=== PATIENT | female | born 2000 | race Caucasian/White ===

== ENCOUNTER 2019-07-18 23:13 | Emergency (ER) | payer OTHER ==
[~2019-07-18] VITALS: Ht 160 cm; Wt 50.0 kg
[2019-07-18 23:15] VITALS: BP 145/81
[2019-07-18] MEDS ORDERED: MUPIROCIN 2% OINT 22 GM TUBE TOP ONE (23:45)
[2019-07-18] MEDS ORDERED: AUGMENTIN 875 MG TAB PO ONE (23:45)
[2019-07-19] MEDS ORDERED: AUGM875T28 PO (00:06)
== END 2019-07-19 00:13 | disposition home or self-care (01) ==
LOC: M ED 23:13
DX: S20.319A Abrasion of unspecified front wall of thorax, initial encounter (principal); S30.810A Abrasion of lower back and pelvis, initial encounter; S40.811A Abrasion of right upper arm, initial encounter; W55.03XA Scratched by cat, initial encounter; Y92.9 Unspecified place or not applicable

== ENCOUNTER 2019-12-05 22:58 | Emergency (ER) | payer OTHER ==
[~2019-12-05] VITALS: Ht 157.5 cm; Wt 55.5 kg
[2019-12-05 22:58] VITALS: BP 141/77
[~2019-12-05 22:58] MED LIST: AUGM875T28 PO
[2019-12-05] MEDS ORDERED: PREN1CHW6 PO (23:03)
[2019-12-06 00:07] LABS: APPEARANCE, URINE CLEAR (CLEAR); BACTERIA, URINE AUTO NEGATIVE (NEGATIVE); BASO % 0.4 % (0.0-1.0); BILIRUBIN, URINE AUTO NEGATIVE (NEGATIVE); BLOOD, URINE BLOOD NEGATIVE (NEGATIVE); COLOR, URINE COLORLESS (YELLOW); EOS # 0.2 10^3/uL (0.0-0.5); GLUCOSE, URINE (UA) AUTO NEGATIVE (NEGATIVE); HEMOGLOBIN 12.2 g/dl (12.0-15.5); KETONE, URINE AUTO NEGATIVE (NEGATIVE); LEUKOCYTE ESTERASE, URINE AUTO NEGATIVE (NEGATIVE); LYMPH # 2.8 10^3/uL (1.5-5.0); LYMPH % 25.5 % (24.0-44.0); MEAN CORPUSCULAR HEMOGLOBIN 29.9 pg (27.0-33.0); MEAN CORPUSCULAR HGB CONC 34.9 g/dl (32.0-36.5); MEAN CORPUSCULAR VOLUME 85.8 fl (80.0-96.0); MONO # 0.8 10^3/uL (0.0-0.8); MONO % 7.7 % (0.0-5.0); NEUTROPHILS % 63.9 % (36.0-66.0); NITRITE, URINE AUTO NEGATIVE (NEGATIVE); PROTEIN, URINE AUTO NEGATIVE (NEGATIVE); RBC, URINE AUTO 0 /HPF (0-3); RED BLOOD COUNT 4.08 10^6/uL (4.00-5.40); SQUAMOUS EPITHELIAL CELL UR AU 0 /HPF (0-6); UROBILINOGEN, URINE AUTO 0.2 mg/dL (0.0-2.0); WBC, URINE AUTO 1 /HPF (0-3); WHITE BLOOD COUNT 10.9 10^3/uL (4.0-10.0)
--- NOTE | 2019-12-06 00:21 | REPVR ---
PROCEDURE INFORMATION: Exam: US , Limited Exam date and time: 12/05/2019 11:33 PM Age: 19 years old Clinical indication: Other: Pelvic pain 18wks; Gestational age or lmp: 18 wks; TECHNIQUE: Imaging protocol: Real-time ultrasound of the maternal uterus with image documentation. Exam focused on the clinical indication. COMPARISON: No relevant prior studies available. FINDINGS: GESTATION: Gestation: Single live intrauterine . Heart rate: heart rate: 158 bpm. Placenta: No placenta previa or abruption. Amniotic fluid: Amniotic fluid index measures 10.7 cm, with the largest pocket measuring 3.3 cm. MATERNAL: Cervix: The cervix is closed and measures 3.8 cm in length. IMPRESSION: Single live intrauterine . No acute findings. PROCEDURE INFORMATION: Exam: US Doppler Velocimetry of the Umbilical Artery Exam date and time: 12/05/2019 11:33 PM Age: 19 years old Clinical indication: Other: Pelvic pain 18wks; Gestational age or lmp: 18 wks; TECHNIQUE: Imaging protocol: US Doppler velocimetry of the umbilical artery with Doppler color and waveform analysis. COMPARISON: No relevant prior studies available. FINDINGS: Umbilical cord and insertion: There are 2 umbilical arteries and single umbilical vein. Cord insertion on the abdominal is not well visualized. Umbilical artery Doppler: Waveforms are within normal limits for age. Umbilical artery peak systolic velocity: 36.6 cm/s. Umbilical artery systolic to diastolic ratio: Systolic to diastolic ratio is within normal limits for age. Other findings: Normal umbilical artery resistive index. IMPRESSION: Normal umbilical artery blood flow. Electronically signed by: Adarsh Crawford On 12/06/2019 00:21:02 AM
[2019-12-06 00:38] LABS: ALBUMIN 3.6 GM/DL (3.2-5.2); ALT/SGPT 22 U/L (12-78); BILIRUBIN,DIRECT < 0.1 MG/DL (0.0-0.2); BILIRUBIN,TOTAL 0.3 MG/DL (0.2-1.0); BLOOD UREA NITROGEN 8 MG/DL (7-18); CALCIUM LEVEL 9.5 MG/DL (8.5-10.1); CARBON DIOXIDE LEVEL 25 MEQ/L (21-32); CHLORIDE LEVEL 107 MEQ/L (98-107); GLUCOSE, FASTING 71 MG/DL (70-100); POTASSIUM SERUM 3.8 MEQ/L (3.5-5.1); SODIUM LEVEL 138 MEQ/L (136-145); TOTAL PROTEIN 6.9 GM/DL (6.4-8.2)
== END 2019-12-06 01:36 | disposition home or self-care (01) ==
LOC: M ED 22:58
DX: O26.892 Other specified pregnancy related conditions, second trimester (principal); R10.9 Unspecified abdominal pain; Z3A.18 18 weeks gestation of pregnancy

== ENCOUNTER 2020-04-24 09:56 | Inpatient (IN) | payer OTHER ==
[2020-04-24] VITALS (29 sets, daily range): BP systolic 99–158; BP diastolic 55–105
[~2020-04-24] VITALS: Ht 157.5 cm; Wt 72.3 kg
[~2020-04-24 09:56] MED LIST changes: +PREN1CHW6 PO
[2020-04-24 10:31] LABS: HEMATOCRIT 36.3 % (36.0-47.0); HEMOGLOBIN 11.6 g/dl (12.0-15.5); MEAN CORPUSCULAR HEMOGLOBIN 24.9 pg (27.0-33.0); MEAN CORPUSCULAR VOLUME 77.9 fl (80.0-96.0); PLATELET COUNT, AUTOMATED 257 10^3/uL (150-450); RED BLOOD COUNT 4.66 10^6/uL (4.00-5.40); WHITE BLOOD COUNT 8.5 10^3/uL (4.0-10.0)
[2020-04-24 11:01] LABS: ALT/SGPT 20 U/L (12-78); BILIRUBIN,TOTAL 0.4 MG/DL (0.2-1.0); CREATININE FOR GFR 0.69 MG/DL (0.55-1.30); LDH LACTATE DEHYDROGENASE 246 U/L (84-246); URIC ACID 6.2 MG/DL (2.6-6.0)
[2020-04-24 11:29] LABS: TOTAL PROTEIN,RANDOM URINE 42.7 MG/DL (0.0-12.0)
[2020-04-24] MEDS ORDERED: miSOPROStol 25 MCG 1/4 TAB (S0191) PV ONE (13:00)
[2020-04-24] MEDS ORDERED: PENICILLIN G POTASSIUM IV 5 MU in D5W MINI-BAG PLUS 100 ML IV STA (13:00)
--- NOTE | 2020-04-24 16:44 | HPEPDOC ---
Obstetrical History & Physical General Date of Admission Apr 24, 2020 at 13:24 History of Present Illness S: Leigh Ann is a 19yo at 38+5wks, EDC [id number] by 1st trimester US, who is being admitted to D for Pre-Eclampsia, diagnosed based on mild range elevated BPs and PC ratio of 1.04. She denies COLEMAN/RUQ pain/visual disturbances. She endorses excellent movement, denies LOF/VB/CTX. She has no concerns at this time. complicated by GBS Positive and excessive weight gain (46lbs). Blood Type O Positive. Benign medical history. Chief Complaint: Induction of labor Information Provided By: Patient Age: 19 : 1 Term: 0 Pre-term: 0 Abortions: 0 Livin Care Care: Good Care Number of Visits: 8 Dating Final EDC: May 03, 2020 Final EDC for Daily Update: May 03, 2020 Final EDC by: 1st trimester (US) Antepartum Course Height (inches): 62 Pre- weight (lbs.): 112 Admission Weight (lbs.): 158 Change in Weight (lbs.): 46 Past Medical History Past Obstetrical History : Past Obstetrical History: Primgravida Family History Significant Family History: No pertinent family hx Social History Marital Status: Family situation: Spouse/partner home Psychosocial History: No pertinent psych hx * Smoker: non-smoker Alcohol: Denies Drugs: denies Imunizations Tdap status: current Influenza Status: current Allergies Coded Allergies: No Known Allergies (Unverified , 04/24/20) Medications Scheduled Vit37/Iron/Folic Acid (Prenata Chewable Tablet) 1 Each Tab.chew, 1 TAB PO DAILY Physical Examination Physical Examination GENERAL: Alert and oriented times three. ABDOMEN: Gravid and non-tender to touch. FETUS: Is vertex (VTX) by sterile vaginal examination. HEART RATE: Regular rate. LUNGS: Observed nonlabored breathing. EXTREMITIES: Bilateral lower extremity edema. Other physical findings O: Afebrile, HR 70s-100s, BP range 99-155/55-105, most recent 135/85 FHR 130s, moderate variability, +accels, no decels noted CTX: irritability VE: 25/-2, membranes swept with initial exam Attempted CRB placement with SSE and manually, but cervix was very firm and pt was too uncomfortable to place at this time Cytotec 25g place at 1555 Vital Signs Date Time Temp Pulse Resp B/P (MAP) Pulse Ox O2 Delivery O2 Flow Rate FiO2 04/24/20 12:56 93 18 132/70 (90) 04/24/20 12:41 86 18 140/83 (102) 04/24/20 12:26 86 18 145/83 (103) 04/24/20 12:13 18 99/55 (70) 04/24/20 11:57 75 18 129/66 (87) 04/24/20 11:26 74 18 139/87 (104) 04/24/20 11:12 77 18 154/83 (106) 04/24/20 10:56 80 18 146/93 (110) 04/24/20 10:42 75 18 142/93 (109) 04/24/20 10:26 84 18 145/105 (118) 04/24/20 10:17 97.7 83 18 143/100 (114) 04/24/20 10:12 81 18 158/99 (118) Laboratory Tests 04/24/20 10:15: White Blood Count 8.5, Red Blood Count 4.66, Hemoglobin 11.6L, Hematocrit 36.3, Mean Corpuscular Volume 77.9L, Mean Corpuscular Hemoglobin 24.9L, Mean Corpuscular Hemoglobin Concent 32.0, Red Cell Distribution Width 14.0, Platelet Count 257, Nucleated Red Blood Cells % (auto) 0.0, Creatinine 0.69, Uric Acid 6.2H, Total Bilirubin 0.4, Aspartate Amino Transf (AST/SGOT) 23, Alanine Aminotransferase (ALT/SGPT) 20, Lactate Dehydrogenase 246 04/24/20 10:21: Urine Random Creatinine 41.0, Urine Random Total Protein 42.7H 04/24/20 13:55: Serology Scanned Report Hepatitis B Testing Vital Signs/I&O Vital Signs Date Time Temp Pulse Resp B/P (MAP) Pulse Ox O2 Delivery O2 Flow Rate FiO2 04/24/20 12:56 93 18 132/70 (90) 04/24/20 10:17 97.7 Laboratory Data 24H LABS Laboratory Tests 2 04/24/20 10:15: Nucleated Red Blood Cells % (auto) 0.0, Uric Acid 6.2H, Total Bilirubin 0.4, Aspartate Amino Transf (AST/SGOT) 23, Alanine Aminotransferase (ALT/SGPT) 20, Lactate Dehydrogenase 246 04/24/20 10:21: Urine Random Creatinine 41.0, Urine Random Total Protein 42.7H 04/24/20 13:55: Serology Scanned Report Hepatitis B Testing CBC/BMP Laboratory Tests 04/24/20 10:15 Pertinent Laboratoy Data Blood Type: O+ RBC Antibody Screen: Negative HIV: Negative Hepatitis B: Negative Rapid Plasma Reagin: Nonreactive Rubella: Immune Varicella: Nonreactive Chlamydia/Gonorrhea: Negative Group B Streptococcus: Positive Quad Screen Test: Declined Cystic Fibrosis: Negative Anatomy Ultrasound Ultrasound Date: Dec 18, 2019 Placenta Location: Anterior Normal Anatomy: Yes Placenta Previa: No Vaginal Examination Presentation: Cephalic presentation Assessment/Plan Assessment A: Leigh Ann is a 19yo at 38+5wks being induced for Pre-Eclampsia (mild range Blood pressures and PC ratio of 1.04). Category I FHT, overall reassuring status. GBS Positive, Blood Type O Positive. Plan P: Admit to LND, consent for IOL, Labor, delivery, and C/S if appropriate. PIV start, admission and Pre-E labs collected PO and IV hydration Close monitoring of Blood Pressures and s/sx of worsening Pre-E symptoms Close maternal/ monitoring CEFM x1 hour after cytotec administration, then intermittent until next dose with Category I FHT PCN for GBS prophylaxis - start when in labor IV pain meds PRN, epidural when in active labor (if desired) Consult with OB as indicated Anticipate SALLIE COOK CNM Apr 24, 2020 16:44
[2020-04-24] MEDS ORDERED: PENICILLIN G POTASSIUM IV 2.5 MU in IV 1 EA IV SCH (17:00)
[2020-04-24] MEDS: miSOPROStol 50 MCG 1/2 TAB (S0191) PO SCH (20:11)
--- NOTE | 2020-04-24 20:54 | IPNPDOC ---
Text Note Date of Service The patient was seen on 04/24/20. NOTE patient is a 19yo at 38+5wks admitted for iol for pre-e without severe fe ature. induction started with cytotec. patient not feeling contractions. denies COLEMAN/N/V/change in vision. vitals: mild range nad fht: 140/mod payam/pos accel/no decel toco: uterine irritability a/p patient with pre-e without severe feature, not in labor. continue cytotec. recheck and attempt garcia bulb once patient having regular painful contractions. Saige, DO VS,Fishbone, I+O VS, Fishbone, I+O Laboratory Tests 04/24/20 10:15 Vital Signs Date Time Temp Pulse Resp B/P (MAP) Pulse Ox O2 Delivery O2 Flow Rate FiO2 04/24/20 18:33 86 18 132/77 (95) 04/24/20 10:17 97.7 CODEY CONTRERAS DO Apr 24, 2020 20:53
[2020-04-25] VITALS (51 sets, daily range): BP systolic 124–178; BP diastolic 63–122
[2020-04-25] MEDS: miSOPROStol 50 MCG 1/2 TAB (S0191) PO SCH ×2 (00:32→05:44)
[2020-04-25] MEDS ORDERED: PENICILLIN G POTASSIUM IV 5 MU in D5W MINI-BAG PLUS 100 ML IV STA (07:19)
[2020-04-25 07:50] LABS: HEMATOCRIT 38.4 % (36.0-47.0); HEMOGLOBIN 11.9 g/dl (12.0-15.5); MEAN CORPUSCULAR HEMOGLOBIN 24.3 pg (27.0-33.0); MEAN CORPUSCULAR VOLUME 78.5 fl (80.0-96.0); PLATELET COUNT, AUTOMATED 278 10^3/uL (150-450); RED BLOOD COUNT 4.89 10^6/uL (4.00-5.40); WHITE BLOOD COUNT 16.1 10^3/uL (4.0-10.0)
--- NOTE | 2020-04-25 08:07 | IPNPDOC ---
Text Note Date of Service The patient was seen on 04/25/20. NOTE patient feeling painful contractions. SROM around 0500. received 4 doses of cytotec vitals: mild range nad fht: 135/mod payam/pos accel/no decel toco: ctx q3mins ce: 1-2/50/-2 a/p patient in latent labor. start pcn for gbs prophy. will recheck in 4-6hrs and consider placing garcia bulb if cervix not changed. Had some elevated BP, patient was laying on the cuff. continue to monitor BP. and signs of severe features. DO Saige VS,Fishbone, I+O VS, Fishbone, I+O Laboratory Tests 04/24/20 10:15 04/25/20 07:31 Vital Signs Date Time Temp Pulse Resp B/P (MAP) Pulse Ox O2 Delivery O2 Flow Rate FiO2 04/25/20 07:02 72 18 136/84 (101) 04/25/20 06:05 97.4 I&O- Last 24 Hours up to 6 AM 04/25/20 06:00 Intake Total 120 ml Balance 120 ml CODEY CONTRERAS DO Apr 25, 2020 08:07
[2020-04-25] MEDS ORDERED: BUTORPHANOL 2 MG/ML INJ (J0595) IV PRN (08:30)
[2020-04-25] MEDS ORDERED: PROMETHAZINE INJ 25 MG/ML VIAL (J2550) IV ONE (08:30)
[2020-04-25] MEDS ORDERED: FENTANYL 2MCG/ML ROPIVACAINE 0.2% IN 0.9% NACL 100ML IVBAG As Ordered ONE (11:17)
[2020-04-25] MEDS ORDERED: PENICILLIN G POTASSIUM IV 2.5 MU in IV 1 EA IV SCH (11:30)
[2020-04-25] MEDS ORDERED: ONDANSETRON 4MG/2ML VIAL IV PRN (12:00)
[2020-04-25] MEDS ORDERED: ePHEDrine SULFATE 25 MG/5 ML(5MG/ML) SYRINGE IV PRN (12:00)
[2020-04-25] MEDS ORDERED: EPIDURAL/PCA KEYS XX PRN (12:00)
[2020-04-25] MEDS ORDERED: FENTANYL/ROPIVACAINE/NACL BAG 100 ML EPIDURAL SCH (12:00)
[2020-04-25] MEDS ORDERED: EPIDURAL COMMENT XX SCH (12:00)
[2020-04-25] MEDS ORDERED: diphenhydrAMINE 50MG/ML VIAL (J1200) IV PRN (12:00)
[2020-04-25] MEDS ORDERED: REFRIGERATOR IV KEYS XX PRN (12:00)
[2020-04-25] MEDS ORDERED: NALOXONE INJ 0.4MG/1ML VIAL (J2310 PER 1MG) IV PRN (12:00)
[2020-04-25] MEDS ORDERED: LACTATED RINGER'S 1000 ML IV PRN (12:00)
[2020-04-25] MEDS ORDERED: OXYTOCIN 30 UNITS IN 0.9% NaCl 500ML IV BAG (J2590) As Ordered ONE (12:12)
[2020-04-25] MEDS ORDERED: OXYTOCIN DRIP 30 UNITS in IV 1 EA IV SCH ×2 (12:30→16:12)
--- NOTE | 2020-04-25 12:37 | IPNPDOC ---
Obstetrical Progress Note Date of Service Apr 25, 2020 Subjective S: Leigh Ann is a 19yo at 38+6wks undergoing IOL for Pre-E. She is stable, has continued with mild range BPs, and remains asymptomatic at this time. She is now s/p epidural. She received cytotec x4 doses, stadol/phenergan for pain. She is very comfortable and is able to get rest. Objective O: VSS, BP normotensive, afebrile FHR 130s, moderate variability (some periods of minimal variability), + accels, no decels noted CTX: irregular, but becoming more regular with pitocin VE: /-1 Vital Signs Date Time Temp Pulse Resp B/P (MAP) Pulse Ox O2 Delivery O2 Flow Rate FiO2 04/25/20 08:34 20 04/25/20 07:02 72 136/84 (101) 04/25/20 06:05 97.4 Assessment Heart Rate Tracing: Category I Sterile Vaginal Examination Postion/Presentation: Cephalic presentation Assessment and Plan Status: Reassuring Group B Streptococcus: Positive Anticipate: Vaginal Delivery Additional Comments A: 19yo undergoing IOL for Pre-E, stable with mild range BPs, epidural in place and pitocin started. P: CEFM x2 close monitoring of maternal/ status start PCN for GBS prophylaxis now continue to monitor BP and for s/sx of worsening Pre-E Consult with OB if indicated Anticipate SALLIE REDDING CNM Apr 25, 2020 12:37
[2020-04-25] MEDS ORDERED: ACETAMINOPHEN 500 MG TAB PO PRN (16:15)
[2020-04-25] MEDS ORDERED: DOCUSATE SODIUM 100 MG CAP PO PRN (16:15)
[2020-04-25] MEDS ORDERED: IBUPROFEN 800 MG TAB PO PRN (16:15)
[2020-04-25] MEDS ORDERED: ACETAMINOPHEN TAB 650MG DOSE (2X325MG) PO PRN (16:15)
[2020-04-25] MEDS ORDERED: DIBUCAINE 1% OINTMENT 30GM TOP PRN (16:15)
[2020-04-25] MEDS ORDERED: IBUPROFEN 600MG TAB PO PRN (16:15)
--- NOTE | 2020-04-25 16:26 | DNPDOC ---
[facility] Delivery Note Delivery Note DATE OF DELIVERY: 04/25/2020 at 1543 PREDELIVERY DIAGNOSIS: 38+6 weeks gestation with Pre-Eclampsia (mild features). POST DELIVERY DIAGNOSIS: Delivered. PROCEDURE: with [address] FREIGHT FIRER: AB [place] ANESTHESIA: Epidural ESTIMATED BLOOD LOSS: 200 mL. FINDINGS: 7 pound 15ounce female infant, Score 8/9. DELIVERY SUMMARY: Called to room for imminent delivery of Leigh Ann, a 19yo G1 now P1001, who was previously admitted for IOL d/t Pre-Eclampsia without severe features. She was C/C/+3 and continued to effectively push to deliver a viable female infant over a protected perineum. head delivered ERICA and restituted to ROT. Once head was out, there was no further progression, pt repositioned to supine and still no further movement with gentle downward traction. Shoulder called, Ana Called for, no movement; suprapubic pressure applied from maternal right to maternal left and left anterior shoulder dislodged and then remainder of body delivered to maternal abdomen where she was dried and stimulated, strong cry. Cord clamped x2 and cut by myself, cord blood collected for type and dana. Cord gases collected. Placenta delivered spontaneously and appeared intact, 3VC. Fundus firm and bleeding WNL, EBL 200mL. Upon inspection of vagina, perineum, and cervix, a shallow 2nd degree perineal laceration that extended to the right labia noted and repaired in usual fashion with 3-0 vicryl rapide. Family bonding well, anticipate uncomplicated PP course. SALLIE REDDING CNM Apr 25, 2020 16:26
[2020-04-25 16:42] LABS: CORD GAS ABE A -9.3; CORD GAS ABE V -5.2; CORD GAS HCO3 A 17.6 MEQ/L; CORD GAS HCO3 V 18.6 MEQ/L; CORD GAS O2 SAT A 60.6 %; CORD GAS O2 SAT V 89.5 %; CORD GAS PCO2 A 41.8 mmHg; CORD GAS PH A 7.242 UNITS; CORD GAS PH V 7.382 UNITS; CORD GAS PO2 A 31.3 mmHg; CORD GAS PO2 V 45.8 mmHg; CORD GAS SBC A 16.3 MEQ/L; CORD GAS SBC V 20.1 MEQ/L; CORD GAS TCO2 A 18.9 MEQ/L; CORD GAS TCO2 V 19.6 MEQ/L
[2020-04-26 06:00] VITALS: BP 141/95
[2020-04-26 07:24] LABS: MEAN CORPUSCULAR HEMOGLOBIN 24.5 pg (27.0-33.0); MEAN CORPUSCULAR HGB CONC 31.7 g/dl (32.0-36.5); MEAN CORPUSCULAR VOLUME 77.3 fl (80.0-96.0); PLATELET COUNT, AUTOMATED 241 10^3/uL (150-450); RED BLOOD COUNT 3.75 10^6/uL (4.00-5.40); WHITE BLOOD COUNT 14.4 10^3/uL (4.0-10.0)
[2020-04-26 07:45] LABS: HEMOGLOBIN 9.2 g/dl (12.0-15.5)
--- NOTE | 2020-04-26 08:31 | IPNPDOC ---
Progress Note Date of Service: Apr 26, 2020 Day#: 1 Progress Note SUBJECT: Patient is a 19-year-old 1 now Para 1 status post uncomplicated spontaneous vaginal delivery with post vaginal laceration and repair, doing well day # 1. She has been ambulating, voiding spontaneously without issue and tolerating regular diet. Breast feeding without issue. Reports lochia is li ke a normal period. Patient is ambulating well. Reports some cramping with . Denies any pain. OBJECTIVE: VITAL SIGNS: Within normal limits, afebrile. GENERAL: No acute distress HEENT: MMM BREAST: Nontender, no erythema CARDIOVASCULAR EXAMINATION: RRR RESPIRATORY EXAMINATION: Bilaterally clear ABDOMINAL EXAMINATION: Soft, appropriate tenderness, nondistended, fundus -2 PERINEUM: Intact, minimal lochia EXTREMITIES: no edema, nontender ASSESSMENT: Patient is a 19-year-old 1 now Para 1 status post uncomplicated spontaneous vaginal delivery with post vaginal laceration and repair, doing well day # 1. Vitals within normal limits, afebrile, hemodynamically stable with no evidence of infection. PLAN: 1. Continue care. 2. Tylenol and Motrin for pain. 3. Encourage breast feeding and ambulation. VS, I&O, 24H, Fishbone Vital Signs/I&O Vital Signs Date Time Temp Pulse Resp B/P (MAP) Pulse Ox O2 Delivery O2 Flow Rate FiO2 04/25/20 12:31 73 18 164/99 (120) 04/25/20 06:05 97.4 I&O- Last 24 Hours up to 6 AM 04/25/20 06:00 Intake Total 120 ml Balance 120 ml Laboratory Data 24H LABS Laboratory Tests 2 04/25/20 07:31: Nucleated Red Blood Cells % (auto) 0.0 CBC/BMP Laboratory Tests 04/25/20 07:31 Aleida De Souza MD Apr 25, 2020 15:45
[2020-04-26] MEDS: PRENATAL VITAMINS CHEWABLE TABLET PO SCH (09:18)
[2020-04-26 14:00] VITALS: BP 120/56
[2020-04-26 18:00] VITALS: BP 137/70
[2020-04-27 01:24] VITALS: BP 137/75
[2020-04-27 05:52] VITALS: BP 140/90
[2020-04-27] MEDS ORDERED: IBUP80TA PO (07:19)
[2020-04-27] MEDS ORDERED: DIBU10OI TOP (07:19)
[2020-04-27] MEDS ORDERED: DOCU100C16 PO (07:19)
[2020-04-27] MEDS: PRENATAL VITAMINS CHEWABLE TABLET PO SCH (08:02)
[2020-04-27 08:03] LABS: HEMATOCRIT 32.5 % (36.0-47.0); HEMOGLOBIN 10.3 g/dl (12.0-15.5); MEAN CORPUSCULAR HEMOGLOBIN 24.6 pg (27.0-33.0); MEAN CORPUSCULAR HGB CONC 31.7 g/dl (32.0-36.5); MEAN CORPUSCULAR VOLUME 77.8 fl (80.0-96.0); PLATELET COUNT, AUTOMATED 245 10^3/uL (150-450); RED BLOOD COUNT 4.18 10^6/uL (4.00-5.40); WHITE BLOOD COUNT 12.9 10^3/uL (4.0-10.0)
[2020-04-27 10:00] VITALS: BP 146/98
== END 2020-04-27 12:15 | disposition home or self-care (01) | DRG 807 ==
LOC: M LDO 09:56 → M LDI 13:24 → M OBS 04-25 18:54
PROVIDERS: ADMIT Registered Nurse Maternal Newborn; ATTEND Registered Nurse Maternal Newborn
PROC: 10E0XZZ Delivery of Products of Conception, External Approach (ICD-10-PCS; principal; 2020-04-25)
PROC: 0KQM0ZZ Repair Perineum Muscle, Open Approach (ICD-10-PCS; 2020-04-25)
DX: O14.04 Mild to moderate pre-eclampsia, complicating childbirth (principal); Z37.0 Single live birth; Z3A.38 38 weeks gestation of pregnancy; O26.00 Excessive weight gain in pregnancy, unspecified trimester; O99.824 Streptococcus B carrier state complicating childbirth; O70.1 Second degree perineal laceration during delivery